=== PATIENT | female | born 1970 | race Caucasian/White ===

== ENCOUNTER 2016-10-28 14:28 | Emergency (ER) | payer BC ==
[~2016-10-28] VITALS: Ht 162.6 cm; Wt 118.8 kg
[~2016-10-28 14:28] MED LIST: Colace PO; NOHOMEMEDS; PRILOSEC OTC20 M1 PO; Proventil,Ventolin H IH; Vicodin,Lortab 5/500 PO
[2016-10-28 15:48] LABS: BILIRUBIN NEGATIVE; BLOOD NEGATIVE; COLOR YELLOW ((YELLOW)); GLUCOSE (STRIP) NEGATIVE; KETONES NEGATIVE; LEUKOCYTES NEGATIVE; NITRITE NEGATIVE; PROTEIN (STRIP) NEGATIVE; SPECIFIC GRAVITY 1.015 (1.000-1.030); UROBILINOGEN 0.2 MG/DL (0.2-1.0)
[2016-10-28 15:49] LABS: ADD MIUA? NO
[2016-10-28 16:25] LABS: EOSINOPHIL COUNT 0.2 K/uL (0-0.3); HEMATOCRIT 43.9 % (36.0-46.0); IMMATURE GRANULOCYTE (%) 0.2 % (0.0-0.7); INSTRUMENT ABS NEUTROPHIL CT 4.8 K/uL; LYMPHOCYTE COUNT 2.5 K/uL (1.0-2.8); MCHC 32.8 G/DL (30.0-36.0); MCV 88.5 FL (83-99); MEAN PLAT.VOLUME 10.9 uM^3 (9.5-12.4); MONOCYTE (%) 5.5 % (3-12); MONOCYTE COUNT 0.4 K/uL (0-0.8); NEUTROPHIL (%) 59.3 % (45-76); NEUTROPHIL COUNT 4.8 K/uL (1.8-6.4); PLATELET COUNT 285 K/uL (156-360); RBC DIS.WIDTH-CV 13.6 % (11.8-14.6); RBC DIS.WIDTH-SD 43.6 % (39-53); RED BLOOD COUNT 4.96 M/uL (3.80-5.20)
[2016-10-28 16:33] LABS: CHLORIDE 105 mEq/L (99-109); POTASSIUM 4.2 mEq/L (3.7-5.4); SODIUM 140 mEq/L (136-147)
[2016-10-28 16:35] LABS: GLUCOSE 82 mg/dL (70-99)
[2016-10-28 16:36] LABS: ANION GAP 6 MEQ/L (2-14)
[2016-10-28 16:37] LABS: TOTAL BILIRUBIN 0.6 mg/dL (0.0-1.0)
[2016-10-28 16:39] LABS: ALKALINE PHOSPHATASE 70 IU/L (3-129); GFR ESTIMATE (CALCULATED) > 59 mL/min/
[2016-10-28 16:40] LABS: UREA NITROGEN (BUN) 15 mg/dL (9-23)
[2016-10-28 16:42] LABS: LIPASE 37 U/L (1.0-51.0)
[2016-10-28] MEDS ORDERED: MIRALAX255 GM PO (18:59)
[2016-10-28] MEDS ORDERED: NAPROSYN500 MG PO (18:59)
[2016-10-28 19:31] VITALS: BP 116/60
== END 2016-10-28 19:35 | disposition home or self-care (01) ==
LOC: EME 14:28
PROVIDERS: Physician Assistant
DX: R10.84 Generalized abdominal pain (principal); R10.2 Pelvic and perineal pain; R10.32 Left lower quadrant pain; K59.00 Constipation, unspecified; Z90.49 Acquired absence of other specified parts of digestive tract; N28.1 Cyst of kidney, acquired; N20.0 Calculus of kidney; J45.909 Unspecified asthma, uncomplicated; Z72.0 Tobacco use
CPT/HCPCS: 74000; 74177; 80053; 81003; 83605; 83690; 85025; 99281; 99284; J1885; J3010; J7030